=== PATIENT | male | born 1950 | race Caucasian/White ===

== ENCOUNTER 2019-06-18 12:17 | Outpatient (CLI) | payer MEDICARE, SELFPAY ==
--- NOTE | 2019-06-18 13:14 | PFTS_ITS ---
Date of Study:06/18/2019 Date of Dictation: MECHANICS: Forced vital capacity (FVC) is reduced. Forced expiratory volume in one second (FEV1) is reduced. FEV1/FVC is reduced. FLOW VOLUME LOOP: Narrow. Reduced flow at all lung volumes. LUNG VOLUMES: Total lung capacity (TLC) is reduced. Residual volume (RV) is normal. DIFFUSING CAPACITY FOR CARBON MONOXIDE: Severely reduced. INTERPRETATION: The pulmonary function tests are consistent with combined obstructive and restrictive ventilatory defect. Spirometry is consistent with moderate obstruction. The reduction in forced vital capacity and total lung capacity are consistent with mild restriction. The DLCO is severely diminished. Given the patient's history of smoking this combination can be seen with emphysema or combined pulmonary fibrosis emphysema syndrome. MTDD
== END 2019-06-18 12:18 | disposition home or self-care (01) ==
PROVIDERS: Family Provider Internal Medicine; PCP Internal Medicine; Visit Provider Thoracic Surgery (Cardiothoracic Vascular Surgery)
DX: R91.1 Solitary pulmonary nodule (principal); F17.210 Nicotine dependence, cigarettes, uncomplicated
CPT/HCPCS: 94010; 94060; 94726; 94729

== ENCOUNTER 2019-10-18 09:55 | Outpatient (CLI) | payer MEDICARE, SELFPAY ==
--- NOTE | 2019-10-18 10:30 | CT_ITS ---
WS: [id number] CT CHEST TECHNIQUE: Contrast enhanced CT of the chest with coronal and sagittal reformatted images. CLINICAL INFORMATION: lung mass COMPARISON: 04/01/2019 and 03/05/2018. PET/CT April 24, 2019 DLP: 806.[address] scans at [facility] use at least one of these dose optimization techniques: automat ed exposure control; mA and/or kV adjustment per patient size (includes targeted exams where dose is matched to clinical indication); or iterative reconstruction. FINDINGS: Advanced chronic emphysematous changes. Spiculated pulmonary nodule in the right upper lobe previousl y measuring 1.5 cm has decreased in size since the prior examination today measuring 0.8 cm consisten t with interval response to therapy. 3 mm hazy faint pulmonary nodule right upper lobe was likely pre sent previously and is unchanged measuring 3 mm. Increased prominence in size of a fibrotic appearing spiculated left upper lobe nodule which was pablito tly present previously today measuring 5 mm. Recommend 3-6 month follow-up. No mediastinal or hilar lymphadenopathy. Hazy opacity right middle lobe measuring 9 mm is unchanged. Moderate thoracic kyphosis with ankylosis . Calcified thoracic aorta. Coronary calcification. CT/CT chest w con* [id number] IMPRESSION: 1. Interval decrease in size of the spiculated pulmonary nodule right upper lo be measuring 8 mm today. 2. Increased prominence in size of a spiculated left upper lobe nodule which w as faintly present previously today measuring 5 mm. Recommend 3-6 month follow- up. 3. Advanced chronic emphysematous changes. No mediastinal or hilar lymphadenop athy. 4. Stable hazy opacity along the right middle lobe measuring 9 mm. 5. 3 mm hazy faint pulmonary nodule right upper lobe is unchanged measuring 3 mm. 6. Moderate thoracic kyphosis with ankylosis thoracic spine.
[2019-10-18 10:54] LABS: Blood Urea Nitrogen 15 mg/dL (8-23)
[2019-10-18] MEDS: iohexol 300 mg/mL 100 mL Btl IV (11:01)
== END 2019-10-18 09:56 | disposition home or self-care (01) ==
LOC: RADWPI 09:59
PROVIDERS: Family Provider Internal Medicine; PCP Internal Medicine; Visit Provider Thoracic Surgery (Cardiothoracic Vascular Surgery)
DX: R91.8 Other nonspecific abnormal finding of lung field (principal); R91.1 Solitary pulmonary nodule; M40.294 Other kyphosis, thoracic region; M43.24 Fusion of spine, thoracic region
CPT/HCPCS: 71260; 82565; 84520; Q9967

== ENCOUNTER 2020-06-05 10:28 | Outpatient (CLI) | payer MEDICARE, SELFPAY ==
--- NOTE | 2020-06-05 11:00 | CT_ITS ---
WS: [id number] CT CHEST WITH INTRAVENOUS CONTRAST HISTORY: lung mass TECHNIQUE: Contiguous 5 mm axial imaging performed on the thorax. Coronal and sagittal reformats are submitted. All CT scans at [facility] use at least one of these dose optimization techniq ues: automated exposure control; mA and/or kV adjustment per patient size (includes targeted exams wh ere dose is matched to clinical indication); or iterative reconstruction. CONTRAST: Omnipaque 300; 95 mL IV. DLP: 584.3 mGycm COMPARISON: 10/18/2019 and 04/01/2019 Lungs and central airway: Marked pulmonary hyperexpansion from emphysema. Continued slow increase in size of the slightly spiculated nodule now measuring 9 mm in the LEFT upper lobe, image 10 of series 3. 3 mm nodule RIGHT upper lobe, image 18 of series 3 is stable. Spiculated, lobulated nodule measuri ng 13 mm in largest diameter with spiculation in the RIGHT upper lobe, image 29 of series 3. This nod ule appears slightly greater and more consolidated as compared to 10/18/2019 but very similar to the p rior study of 04/01/2019. Variability in appearance is probably due to slice selection. This nodule otto s increased in size since 03/05/2018. Pleura: Normal. No pleural effusion. Heart and pericardium: Normal size heart with no pericardial effusion. Mediastinum and karlene: No mediastinum or hilar adenopathy. Small stable benign-appearing lymph nodes i n the mediastinum and precarinal. Vessels: Atherosclerosis aorta. Normal size pulmonary arteries. Chest wall and lower neck: No soft tissue masses. Upper abdomen: Atherosclerosis continues into the upper abdominal aorta. The visualized liver and gal lbladder are negative. No adrenal mass. Osseous structures: Marked increase in thoracic kyphosis. Disc space narrowing and desiccation with a nkylosis. CT/CT chest w con* [id number] IMPRESSION: 1. Increase in size of the spiculated nodule LEFT upper lobe from 5 mm to 9 mm . 2. Lobulated nodule in the RIGHT upper lobe measures 13 mm. No significant pro gression since the [address] but since 03/05/2018 this nodul e has significantly increased in size. Both the nodule in the LEFT upper and RI GHT upper lobes are suspicious for early neoplasm. 3. No change in 3 mm RIGHT upper lobe nodule. 4. Severe chronic emphysema. 5. Moderate atherosclerosis aorta.
[2020-06-05] MEDS: iohexol 300 mg/mL 100 mL Btl IV (11:35)
== END 2020-06-05 10:29 | disposition home or self-care (01) ==
LOC: RADWPI 10:33
PROVIDERS: PCP Internal Medicine; Visit Provider Thoracic Surgery (Cardiothoracic Vascular Surgery)
DX: R91.8 Other nonspecific abnormal finding of lung field (principal); I70.0 Atherosclerosis of aorta; J43.9 Emphysema, unspecified; R91.1 Solitary pulmonary nodule
CPT/HCPCS: 71260; Q9967

== ENCOUNTER 2021-01-15 18:13 | Emergency (ER) | payer MEDICARE, SELFPAY ==
[2021-01-15 18:20] VITALS: BP 129/69; PULSE 91; RESP 20; O2SAT 97; BMI 18.2
--- NOTE | 2021-01-15 18:37 | XRR_ITS ---
PROCEDURE INFORMATION: Exam: XR Chest Exam date and time: 01/15/2021 6:37 PM Age: 70 years old Clinical indication: Cough with hemorrhage; Patient HX: History--hx of lung cancer, coughing up blood; Additional info: Hemoptysis TECHNIQUE: Imaging protocol: XR of the chest. Views: 1 view. COMPARISON: CT chest w con* [id number] 06/05/2020 11:33 AM FINDINGS: Lungs: The lungs are somewhat hyperinflated with increased interstitial markings, likely representing COPD. There is a streaky airspace opacity in the left lung base. No evidence of focal consolidation to suggest pneumonia. Pleural spaces: Unremarkable. No pleural effusion. No pneumothorax. Heart/Mediastinum: Stable cardiomediastinal silhouette. Bones/joints: Unremarkable. XR/XR chest 1V portable [id number] IMPRESSION: Streaky airspace opacity in the left lung base, which may represent atelectasis, pneumonia or aspirated blood products given history of hemoptysis. COPD changes.
--- NOTE | 2021-01-15 18:38 | ECG_ITS ---
[facility] Test Date: 2021-01-15 Pat Name: Perez Kincaid Department: Room: Gender: Male Hall Monitor: : 1950 Requested By: Duane Martinez Order Number: [id number] Reading MD: Measurements Intervals [place] Rate: 78 P: 72 IL: 140 QRS: 70 QRSD: 89 T: 63 QT: 350 QTc: 399 Interpretive Statements SINUS RHYTHM No previous ECG available for comparison [email or web address]
[2021-01-15 18:51] LABS: Basophils # 0.1 10^3/uL (0.0-0.1); Basophils % 0.3 %; Eosinophils # 0.2 10^3/uL (0.0-0.8); Eosinophils % 1.5 %; Hematocrit 33.5 % (42.0-52.0); Hemoglobin 10.4 g/dL (11.7-16.6); Lymphocytes # 1.6 10^3/uL (0.8-4.8); Lymphocytes % 10.6 %; Mean Corpuscular Hemoglobin 27.5 pg (28.0-34.0); Mean Corpuscular Volume 88.6 fl (80-94); Mean Platelet Volume 10.3 fL (7.4-10.4); Monocytes % 6.5 %; Neutrophils # 12.34 10^3/uL (1.8-7.7); Neutrophils % 80.7 %; Nucleated Red Blood Cells % 0 %; Platelet Count 280 10^3/cmm (130-400); Red Blood Count 3.78 10^6/uL (4.1-5.3); Red Cell Distribution Width 14.2 % (12.1-15.1); White Blood Count 15.3 10^3/uL (4.0-10.0)
--- NOTE | 2021-01-15 18:53 | ED_ITS ---
HPI - General Adult General: Chief complaint: Nausea/Vomiting/Diarrhea Stated complaint: VOMIT, COUGH UP BLOOD Time Seen by Provider: 01/15/21 18:27 Source: patient and EMS Mode of arrival: EMS Limitations: no limitations History of Present Illness: HPI narrative: 70-year-old male who diagnosed with pulmonology alert little over a year ago. This nodule has been increasing in s ize he states that he does not want any type of oncology treatment and he has not seen an oncologist. Patient was seen by PCP today and had a severe hemoptysis since earlier today. He has hemoptysis from the room and is pale appearing. States that he has been on oxygen over the last year roughly 3 L he currently smokes and has not stop smoking. He denies any pain anywhere. He states he has had weakness and is mainly concerned with his level hemoptysis today. Associated symptoms: Deny chest pain, headache(s), nausea, rash or vomiting Review of Systems Const: Denies: fever(s), chills, body aches or change in appetite Eyes: Denies: blurry vision or eye discomfort ENMT: Denies: throat pain or dental pain Card: Denies: chest pain Resp: Reports: hemoptysis GI: Denies: abdominal pain, nausea, vomiting or diarrhea : Denies: dysuria Musc: Denies: neck pain or back pain Skin/Breast: Denies: rash Neuro: Denies: headache(s) Psych: Denies: depression Sam/Lymph: Denies: easy bruising All/Imm: Denies: urticaria PFS ED PFSH: Medical History (Updated 01/15/21 @ 19:46 by Duane Martinez MD) COPD (chronic obstructive pulmonary disease) Pulmonary nodule Surgical History S/P cataract extraction Social History Smoking and tobacco status: current every day smoker cigarettes Packs smoked per day: 1 Years cigarettes smoked: 55 Alcohol intake: never Physical Exam Const: COMMON NORMALS: patient oriented x3 GENERAL APPEARANCE: ill appearing NUTRITIONAL APPEARANCE: thin HENMT: COMMON NORMALS: normocephalic and atraumatic HEAD & SCALP: normocephalic and atraumatic Eye: COMMON NORMALS: Equal, round and reactive pupils present and EOMs intact bilaterally PUPIL: Yes Equal, round and reactive pupils present Neck/C-Spine: COMMON NORMALS: full ROM and supple Chest: COMMONS NORMALS: normal inspection of the chest and normal palpation of entire chest wall Resp: COMMON NORMALS: normal respiratory effort, No retractions, No use of accessory muscles and clear to auscultation bilaterally AUSCULTATION: clear to auscultation bilaterally Cardio: COMMON NORMALS: regular rate, regular rhythm and No murmurs present (Cardio) RATE: regular rate RHYTHM: regular rhythm GI: COMMON NORMALS: Normal to inspection, nondistended, normoactive bowel sounds present, Soft to palpation, non-tender and no masses PALPATION: Yes Soft to palpation Extremity: COMMON NORMALS: normal to inspection and full ROM Neuro: COMMON NORMALS: patient oriented x3, moves all extremities and no focal motor deficits Psych: COMMON NORMALS: mental status grossly normal, Normal thought process present and cooperative THOUGHT PROCESS: Normal thought process present Skin: COMMON NORMALS: no rashes or lesions noted and no wounds GENERAL SKIN EXAM: no rashes or lesions noted Course Vital Signs: Vital signs: Vital Signs Pulse Rate 91 01/15/21 18:20 Respiratory Rate 20 H 01/15/21 18:20 Blood Pressure 129/69 01/15/21 18:20 Pulse Oximetry 97 01/15/21 18:20 MDM - General Adult MDM Narrative: Medical decision making narrative: Patient presents here with hemoptysis with known lung nodules. Patient has refused any treatment in the past. Patient is now refusing a CT scan and wants to sign AMA. I went and spoke to him he states he decided just does not want to be seen for this and his coughing is improved. I informed him that with his level hemoptysis he could get you severely anemic and even . He understands this has a decision made capacity is going to sign out AMA. Lab Data: Labs: Lab Results 01/15/21 01/15/21 01/15/21 18:26 18:26 18:26 WBC 15.3 10^3/uL H 10 ^3/uL (4.0-10.0) RBC 3.78 10^6/uL L 10 ^6/uL (4.1-5.3) Hgb 10.4 g/dL L g/dL (11.7-16.6) Hct 33.5 % L % (42.0-52.0) MCV 88.6 fl fl (80-94) MCH 27.5 pg L pg (28.0-34.0) MCHC 31.0 g/dL g/dL (30.0-36.0) RDW 14.2 % % (12.1-15.1) Plt Count 280 10^3/cmm 10^3 /cmm (130-400) MPV 10.3 fL fL (7.4-10.4) Neut % (Auto) 80.7 % % Lymph % (Auto) 10.6 % % Dolores % (Auto) 6.5 % % Eos % (Auto) 1.5 % % Baso % (Auto) 0.3 % % Neut # (Auto) 12.34 10^3/uL H 1 0^3/uL (1.8-7.7) Lymph # (Auto) 1.6 10^3/uL 10^3/ uL (0.8-4.8) Dolores # (Auto) 1.0 10^3/uL H 10^ 3/uL (0.2-0.9) Eos # (Auto) 0.2 10^3/uL 10^3/ uL (0.0-0.8) Baso # (Auto) 0.1 10^3/uL 10^3/ uL (0.0-0.1) Nucleated RBC % (a uto) 0 % % Nucleated RBCs # 0.0 /100WBC /100W BC PT 13.60 SECONDS SEC ONDS (12.1-14.9) INR 1.01 (0.8-1.2) Sodium 141 mmol/L mmol/L (136-145) Potassium 4.6 mmol/L mmol/L (3.5-5.1) Chloride 97 mmol/L L mmol/ L (98-107) Carbon Dioxide 34 mmol/L H mmol/ L (22-29) Anion Gap 14.6 (5-19) BUN 21 mg/dL mg/dL (8-23) Creatinine 0.8 mg/dL mg/dL (0.7-1.2) GFR Calculation 95.6 mL/min mL/mi n (90-130) Glucose 176 mg/dL H mg/dL (65-115) Calculated Osmolal ity 299 mOsm/kg H mOs m/kg (285-295) Calcium 9.6 mg/dL mg/dL (8.5-10.5) Total Bilirubin 0.2 mg/dL mg/dL (0.15-1.2) AST 12 U/L U/L (0-40) ALT 7 U/L U/L (0-41) Alkaline Phosphata se 79 IU/L IU/L (40-130) NT-Pro-B Natriuret Pep 200 pg/mL H pg/mL (0-125) Total Protein 6.6 g/dL g/dL (6.6-8.7) Albumin 3.9 g/dL g/dL (3.5-5.2) Globulin 2.7 g/dL g/dL (1.3-4.6) EKG Data^: EKG 1: Attestation: I personally reviewed and interpreted this EKG as follows: EKG interpretation date: 01/15/21 EKG interpretation time: 19:10 Interpretation: nsr hr [address] or t wave abnormalities qrs 89 qtc 383 Discharge Plan Discharge Patient Disposition: Left Against Medical Advice Clinical Impression: Cough with hemoptysis Condition: Stable Prescriptions: No Action atorvastatin 10 mg tablet 10 mg PO DAILY RF: 0 aspirin 325 mg tablet 325 mg PO DAILY RF: 0 multivitamin Tablet 1 tab PO QAM RF: 0 lamotrigine 50 mg tablet extended release 24hr 50 mg PO BID RF: 0 oxycodone-acetaminophen 5-325 mg tablet 1 tab PO TID PRNRF: 0 tizanidine 4 mg capsule 4 mg PO DAILY RF: 0 triamcinolone acetonide 0.1 % ointment 1 applic TOPICAL BID RF: 0 alprazolam 0.25 mg tablet 0.25 mg PO .COMPLEX RF: 0 duloxetine [Cymbalta] 60 mg capsule,delayed release(DR/EC) 60 mg PO DAILY RF: 0 mirtazapine 15 mg tablet 15 mg PO DAILY RF: 0 ipratropium-albuterol 0.5 mg-3 mg(2.5 mg base)/3 mL solution for nebulization 3 ml INHALATION Q6H PRNRF: 0 Trelegy Ellipta 100-62.5-25 mcg blister with device 1 inh INHALATION Q24H RF: 0 Referrals: Colleen Salas MD [Primary Care Provider] - Coding Level of Care Code ED Critical Power Technician for Chg Fwd Exam Comprehensive
[2021-01-15 19:04] LABS: INR 1.01 (0.8-1.2)
[2021-01-15 19:21] LABS: Alanine Aminotransferase 7 U/L (0-41); Albumin Level 3.9 g/dL (3.5-5.2); Alkaline Phosphatase 79 IU/L (40-130); Anion Gap 14.6 (5-19); Aspartate Amino Transferase 12 U/L (0-40); Blood Urea Nitrogen 21 mg/dL (8-23); Calcium 9.6 mg/dL (8.5-10.5); Carbon Dioxide 34 mmol/L (22-29); Chloride 97 mmol/L (98-107); Globulin 2.7 g/dL (1.3-4.6); Glomerular Filtration Rate 95.6 mL/min (90-130); Glucose 176 mg/dL (65-115); NT Pro B Type Natriuretic Pept 200 pg/mL (0-125); Osmolality Calculated 299 mOsm/kg (285-295); Potassium 4.6 mmol/L (3.5-5.1); Sodium 141 mmol/L (136-145); Total Bilirubin 0.2 mg/dL (0.15-1.2); Total Protein 6.6 g/dL (6.6-8.7)
[2021-01-15 19:58] VITALS: RESP 20; O2SAT 97
== END 2021-01-15 19:59 | disposition left against medical advice (07) ==
PROVIDERS: Emergency Provider Emergency Medicine; PCP Internal Medicine
DX: R04.2 Hemoptysis (principal); Z53.21 Procedure and treatment not carried out due to patient leaving prior to being seen by health care provider; Z79.82 Long term (current) use of aspirin; J44.9 Chronic obstructive pulmonary disease, unspecified; F17.210 Nicotine dependence, cigarettes, uncomplicated
CPT/HCPCS: 71045; 80053; 83880; 85025; 85610; 93005; 99282

== ENCOUNTER 2021-01-24 08:51 | Outpatient (CLI) | payer MEDICARE, SELFPAY ==
--- NOTE | 2021-01-24 09:00 | CT_ITS ---
WS: [id number] CT NECK TECHNIQUE: Noncontrast CT of the neck with coronal and sagittal reformatted images. CLINICAL INFORMATION: CERVICAL LYMPHADENOPATHY, ANTERIOR, RIGHT COMPARISON: PET/CT July 01, 2020 DLP: 458.[address] scans at [facility] use at least one of these dose optimization techniques: automated e xposure control; mA and/or kV adjustment per patient size (includes targeted exams where dose is matc hed to clinical indication); or iterative reconstruction. FINDINGS:Exam limited due to lack of IV contrast Suspicious spiculated nodule in the left upper lobe medially measuring 1.5 x 2.1 cm suspicious for m etastatic disease. This is progressed since July 01, 2020. Palpable marker overlying the right neck with enlarged level 3 anterior cervical lymph node with some central low attenuation measuring 1.7 x 1.3 cm suspicious for metastatic disease. This is deep to the sternocleidomastoid. Large supraglottic soft tissue mass involving the vallecula measuring 5.1 x 2.8 x 4.5 CM. Diffuse eff acement of the. Glottic space with thickening of the aryepiglottic folds. This extends to involve the left supraglottic larynx left greater than right false cords. Glottis appears normal. Subglottic air way is patent. Adjacent sclerosis involving the hyoid bone. Exaggeration the normal cervical lordosis. Prior postoperative changes ACDF C3-C6. Interbody fusion g rafts. Mastoid air cells are well aerated. Paranasal sinuses are well aerated. . Emphysematous changes in th e lung apices. CT/CT neck wo con [id number] IMPRESSION: 1. Bulky supraglottic soft tissue mass involving the preepiglottic space and v allecula suspicious for squamous cell carcinoma. Soft tissue mass measures 5.1 x 2.8 x 4.5.Recommend further evaluation with endoscopy and staging with PET/CT 2. Involvement of the aryepiglottic folds with extension into the supraglottic larynx involving the vocal folds left greater than right. 3. Deep to the palpable marker right neck is enlarged central low-attenuation likely necrotic lymph node measuring 1.7 x 1.3 cm. 4. No other significant cervical lymphadenopathy. 5. Spiculated nodule left upper lobe has progressed consistent with malignancy , either primary neoplasm or metastatic disease measuring 1.5 x 2.1 cm.
== END 2021-01-24 08:52 | disposition home or self-care (01) ==
PROVIDERS: PCP Internal Medicine; Visit Provider Nurse Practitioner Family
DX: R59.0 Localized enlarged lymph nodes (principal); R91.1 Solitary pulmonary nodule
CPT/HCPCS: 70490